=== PATIENT | female | born 1970 | race African-American/Black ===

== ENCOUNTER 2017-12-14 07:37 | Outpatient (CLI) | payer OTHER ==
[2017-12-14] MEDS ORDERED: Gadobenate Dimeglumine 529 MG/1 ML (20ML VIAL) ONE (09:00)
--- NOTE | 2017-12-14 09:29 | RAD ---
CERVICAL SPINE FOUR VIEWS: History: Cervical pain. Technique: Views were obtained in the neutral, flexion, and extension position as well as an AP view. FINDINGS: The cervical vertebrae maintain height and alignment. Mild to moderate degenerative changes are noted at C4-5 and C5-6. Mild loss of disc space at C5-6. Anterior osteophytes are prominent at C4, C5, and C6 levels. Mild posterior spondolytic changes at the C5-6 level noted. No significant listhesis or s ubluxation seen with flexion or extension. IMPRESSION: There are mild to moderate degenerative changes in the mid cervical spine as described. POS: OFF
--- NOTE | 2017-12-14 09:35 | RAD ---
LUMBAR SPINE FOUR VIEWS: History: 47-year-old female with history of lumbar radiculopathy and low back pain. Comparison: 07-22-14 FINDINGS/IMPRESSION: Evidence for laminectomy at L5. No malalignment. No abnormal translation between flexion and extensio n. Lower lumbar spine facet arthrosis. POS: OFF
--- NOTE | 2017-12-14 10:56 | MRI ---
MRI CERVICAL SPINE WITHOUT CONTRAST: HISTORY: Cervical pain. Pain radiates down the left shoulder and arm. COMPARISON: 03/22/2016 TECHNIQUE: MRI cervical spine is performed without intravenous Gadolinium administration. Multisequential, mult iplanar imaging is performed. FINDINGS: Appropriate T1 marrow signal intensity of the cervical vertebrae. Cervical spine vertebral body heig ht is maintained. No fracture. No significant STIR hyperintensity to suggest edema or ligamentous i njury. The visualized brain parenchyma, cervicomedullary junction, cervical cord, and upper thoracic aorta h ave normal size and signal intensity. C2-C3: No significant disk osteophyte complex. No significant central canal stenosis. Foramina are patent. C3-C4: No significant disk osteophyte complex. No significant central canal stenosis. The right ne ural foramen is patent. Mild left foraminal narrowing. C4-C5: A broad-based disk osteophyte complex abuts the thecal sac and effaces the ventral subarachno id space. Minimal deformity of the cervical cord, without T2 hyperintensity in the cord. Mild centr al canal stenosis. Degenerative change in the bilateral vertebral joints results in mild right and mo derate left foraminal narrowing. C5-C6: Broad-based disk osteophyte complex abuts the thecal sac. The ventral subarachnoid space is maintained. Minimal findings in the cervical cord, without T2 hyperintensity in the cord. Mild cent ral canal stenosis. Degenerative change in the bilateral uncovertebral joints results in mild bilate ral foraminal narrowing. C6-C7: No significant disk osteophyte complex. No significant central canal stenosis. The foramina are patent. C7-T1: No significant disk osteophyte complex. No significant central canal stenosis. The neural f oramina are patent. IMPRESSION: Degenerative changes of the cervical spine, as detailed above. No high grade central canal stenosis. There is moderate left foraminal narrowing at the C4-C5 level. POS: [facility]
--- NOTE | 2017-12-14 11:36 | MRI ---
MRI LUMBAR SPINE WITH AND WITHOUT CONTRAST: HISTORY: Lumbar radiculopathy. Previous back surgery. Pain radiating down the right leg and hip. COMPARISON: 06/29/2016 TECHNIQUE: MRI lumbar spine is performed without intravenous Gadolinium administration. Multisequential, multip lanar imaging is performed. FINDINGS: Appropriate T1 marrow signal intensity of the lumbar vertebrae. Lumbar spine vertebral body height i s maintained. No fracture. No STIR hyperintensity to suggest edema or ligamentous injury. No patho logic enhancement of the vertebral bodies. Symmetric signal intensity of the psoas muscles. T2 hyperintensity in the posterior segment of the r ight hepatic lobe, similar to the previous examination. Hepatic cyst is favored. The conus medullar is terminates at the mid L2 level. T12-L1: Adequate disk hydration. No significant central canal stenosis or foraminal narrowing. L1-L2: Adequate disk hydration. No significant central canal stenosis or foraminal narrowing. L2-L3: Adequate disk hydration. No significant central canal stenosis or foraminal narrowing. L3-L4: Adequate disk hydration. Mild ligamentum flavum thickening and facet hypertrophy. No signif icant central canal stenosis. The neural foramina are patent. L4-L5: Posterior decompressive laminectomy defect. Enhancing scar tissue at the operative site. Ge neralized disk bulge and posterior element hypertrophy result in mild central canal stenosis. Minima l bilateral foraminal narrowing. L5-S1: Mild loss of disk space height. There is a generalized disk bulge. There is no significant stenosis of the thecal sac; however, there is narrowing of both subarticular zones with obscuration o f bilateral traversing S1 nerve roots, left greater than right. The degree of subarticular stenosis has not significantly changed. A posterior decompressive laminectomy defect is identified. Minimal scar tissue at the operative site. The previously noted annular fissure is no longer evident. IMPRESSION: 1. Redemonstration of postoperative changes. No high grade central canal stenosis; however, there i s persistent narrowing of both subarticular zones at L5-S1 with obscuration of bilateral traversing S 1 nerve roots. 2. Interval resolution of abnormal signal intensity on the posterior L5-S1 disk. POS: [facility]
== END 2017-12-14 07:38 | disposition home or self-care (01) ==
LOC: MRI 07:37 → SCSMRI 07:38
PROVIDERS: ATTEND Physician Assistant Surgical
DX: M54.2 Cervicalgia (principal); M47.26 Other spondylosis with radiculopathy, lumbar region; M47.892 Other spondylosis, cervical region; M48.02 Spinal stenosis, cervical region; Z98.890 Other specified postprocedural states
CPT/HCPCS: 72050; 72120; 72141; 72158; A9579

== ENCOUNTER 2018-03-26 12:28 | Outpatient (CLI) | payer OTHER | END 2018-03-26 12:29 | disposition home or self-care (01) | LOC: BICMAMMO 12:28 | PROVIDERS: ATTEND Internal Medicine | DX: Z12.31 Encounter for screening mammogram for malignant neoplasm of breast (principal) | CPT/HCPCS: 77063; 77067 ==

== ENCOUNTER 2018-05-30 10:35 | Day surgery (SDC) | payer OTHER ==
[2018-05-30] MEDS ORDERED: PROPOFOL 200 MG/20 ML VIAL ONE (14:55)
--- NOTE | 2018-05-30 17:15 | OP ---
DATE OF PROCEDURE: 05/30/2018 PROCEDURE PERFORMED: Esophagogastroduodenoscopy with biopsy. SURGEON: Que Harris MD. ANESTHESIA: Premedications given per Anesthesiology Department. PREPROCEDURE DIAGNOSES: 1. Gastroesophageal reflux. 2. Dyspepsia. POSTPROCEDURE DIAGNOSES: 1. Mild mid body gastritis, nonerosive. 2. Otherwise normal upper endoscopy. PROCEDURE IN DETAIL: A written consent was obtained prior to procedure. After adequate sedation, th e forward-viewing endoscope was advanced down the stomach under direct vision to second portion of th e duodenum. Both the second portion and the bulb appeared normal. Pylorus is patent. The gastric a ntrum appeared normal. In the mid body, mucosal hyperemia and petechia were noted. Biopsies were ob tained. Fundus and cardia appeared normal. Retroflexion did not show any abnormality. GE junction located at 38 cm with normal Z-line. The distal, mid, and upper esophagus appeared normal. Patient tolerated the procedure well. ASSESSMENT: 1. Mid body nonerosive gastritis. 2. Otherwise normal upper endoscopy. RECOMMENDATIONS: 1. Await biopsy result. 2. Continue with pantoprazole.
--- NOTE | 2018-05-30 17:29 | OP ---
DATE OF PROCEDURE: 05/30/2018 PROCEDURE: Colonoscopy. SURGEON: Que Harris M.D. ANESTHESIA: Premedication given per Anesthesiology Department. PREPROCEDURE DIAGNOSIS: Colon screening. POSTPROCEDURE DIAGNOSIS: Normal colon exam. PROCEDURE IN DETAIL: A written consent was obtained prior to procedure. After adequate sedation, re ctal exam performed was normal. The endoscope was advanced to the cecum. The quality of the bowel p rep was good. The cecum, ascending colon, hepatic flexure, transverse colon, splenic flexure, descen ding colon and rectosigmoid colon all appeared normal. Retroflexion did not show any abnormality exc ept for small internal hemorrhoids. The patient tolerated the procedure well. ASSESSMENT: 1. Small internal hemorrhoids. 2. Otherwise normal colon exam. RECOMMENDATION: Repeat colon screening in 10 years.
== END 2018-05-30 13:38 | disposition home or self-care (01) ==
LOC: SDC 10:35
PROVIDERS: ATTEND Internal Medicine Gastroenterology
PROC: 0DB68ZX Excision of Stomach, Via Natural or Artificial Opening Endoscopic, Diagnostic (ICD-10-PCS; principal; 2018-05-30)
PROC: 0DJD8ZZ Inspection of Lower Intestinal Tract, Via Natural or Artificial Opening Endoscopic (ICD-10-PCS; principal; 2018-05-30)
DX: Z12.11 Encounter for screening for malignant neoplasm of colon (principal); K29.50 Unspecified chronic gastritis without bleeding; B96.81 Helicobacter pylori [H. pylori] as the cause of diseases classified elsewhere; K21.9 Gastro-esophageal reflux disease without esophagitis; K64.8 Other hemorrhoids
CPT/HCPCS: 88305; 88312; J2704

== ENCOUNTER 2019-04-04 07:37 | Outpatient (CLI) | payer OTHER ==
--- NOTE | 2019-04-04 08:17 | MMO ---
Bilateral MAMMO Bilat Screen [facility]DI. CLINICAL HISTORY: Patient is 49 years old and is seen for screening. The patient has the following family history of breast cancer: second cousin, malignant (generic). The patient has no personal history of cancer. The patient has a history of Breast reduction more than 10 years ago. VIEWS: The views performed were: bilateral craniocaudal and bilateral mediolateral oblique. FILMS COMPARED: The present examination has been compared to prior imaging studies performed at [facility] on 05/15/2014, 07/28/2015, 08/31/2016 and 03/26/2018. This study has been interpreted with the assistance of computer-aided detection. MAMMOGRAM FINDINGS: The breasts are heterogeneously dense, which could obscure a lesion on mammography. There are no suspicious masses, suspicious calcifications, or new areas of architectural distortion. IMPRESSION: THERE IS NO MAMMOGRAPHIC EVIDENCE OF MALIGNANCY. A ROUTINE FOLLOW-UP MAMMOGRAM IN 1 YEAR IS RECOMMENDED. ACR BI-RADS Category 1 - Negative MAMMOGRAPHY NOTE: 1. A negative mammogram report should not delay a biopsy if a dominant of clinically suspicious mass is present. 2. Approximately 10% to 15% of breast cancers are not detected by mammography. 3. Adenosis and dense breasts may obscure an underlying neoplasm. Reported by: PAUL BELLA MD Electonically Signed: [id number]
== END 2019-04-04 07:38 | disposition home or self-care (01) ==
LOC: SCSMAMMO 07:37
PROVIDERS: ATTEND Internal Medicine
DX: Z12.31 Encounter for screening mammogram for malignant neoplasm of breast (principal)
CPT/HCPCS: 77067

== ENCOUNTER 2020-09-29 09:49 | Outpatient (CLI) | payer OTHER ==
--- NOTE | 2020-09-29 11:34 | RAD ---
LUMBAR SPINE SERIES WITH FLEXION AND EXTENSION 4 VIEWS: Date: 09/29/2020 HISTORY: Previous surgery. Pain mostly in right leg. FINDINGS: Vertebral bodies maintain normal height. Minimal disc narrowing is seen at L5-S1. Post laminectomy ch anges are seen at this level. There is limited motion on the flexion or extension views. No abnormal motion identified. IMPRESSION: Stable postop change. POS: [facility]
--- NOTE | 2020-09-29 11:35 | MRI ---
MRI LUMBAR SPINE WITH AND WITHOUT CONTRAST: DATE: 09/29/2020 HISTORY: 50-year-old female with low back pain and bilateral lumbar radiculopathy, right worse than left. ICD-10: "M 54.30, sciatica" "M 79.606, leg pain" COMPARISON: 12/14/2017 TECHNIQUE: Multiple sequences obtained in axial and sagittal planes, pre and post IV injection of gadolinium-bas ed contrast agent. FINDINGS: There are 5 lumbar-type vertebrae. Vertebral body heights are maintained. No significant disc space narrowing at any level. Alignment is normal. No scoliosis. Conus medullaris terminates at upper L3. Normal bone marrow signal. T12-L1:Normal L1-2:Normal L2-3:Normal L3-4:Mild bilateral facet DJD and mild to moderate ligamentum flavum thickening. No high-grade centra l spinal canal stenosis and no high-grade neural foraminal stenosis. L4-5:Midline laminectomy defect. Moderate degenerative bony hypertrophy of bilateral facet complexes causing lateral recess stenosis bilaterally. The right side is worse than left, and has worsened since the prior MRI. Interval worsening of now moderate right neural foraminal stenosis, due to right facet hypertrophy and foraminal component of disc bulge. Slightly lesser degree of moderate left neural foraminal stenosis, unchanged. Transverse diameter spinal canal and thecal sac are narrowed, w ith overall moderate degree of central spinal canal stenosis. L5-S1:Severe bilateral facet DJD with bony hypertrophy. This, together with small-moderate central di sc herniation superimposed on disc bulge, results in high-grade lateral recess stenosis bilaterally. Additional postsurgical scar tissue surrounding the bilateral S1 nerve roots at the late ral recesses, in addition to the crowding caused by the disc herniation and facet hypertrophy. Midline laminectomy defect. Mild thecal sac stenosis. Moderate right and moderate to severe left neur al foraminal stenosis, unchanged. IMPRESSION: 1) status post midline laminectomies at L4-5 and L5-S1. 2) high-grade stenoses of the bilateral subarticular zones at L4-5 and L5-S1. See above comments. 3) the right L4-5 subarticular zone stenosis has apparently worsened since 12/14/2017. 4) no other interval change. 5) all levels superior to L4 are essentially normal.
== END 2020-09-29 09:50 | disposition home or self-care (01) ==
LOC: TBSIIMAG 09:49
PROVIDERS: ATTEND Surgery
DX: M54.30 Sciatica, unspecified side (principal); M79.606 Pain in leg, unspecified; M48.061 Spinal stenosis, lumbar region without neurogenic claudication; Z98.890 Other specified postprocedural states
CPT/HCPCS: 72120; 72158

== ENCOUNTER 2021-10-20 10:00 | Outpatient (CLI) | payer BC | END 2021-10-20 10:01 | disposition home or self-care (01) | LOC: BICULT 10:00 | PROVIDERS: ATTEND Internal Medicine Gastroenterology | DX: R10.13 Epigastric pain (principal); K21.9 Gastro-esophageal reflux disease without esophagitis; K80.20 Calculus of gallbladder without cholecystitis without obstruction | CPT/HCPCS: 76700 ==

== ENCOUNTER 2024-06-20 16:02 | Outpatient (CLI) | payer BC | END 2024-06-20 16:03 | disposition home or self-care (01) | LOC: CT 16:02 | PROVIDERS: ATTEND Psychiatry & Neurology Neurology | DX: R51.9 Headache, unspecified (principal) | CPT/HCPCS: 70450 ==

== ENCOUNTER 2024-09-08 09:53 | Outpatient (CLI) | payer BC ==
[2024-09-08] MEDS ORDERED: Regadenoson 0.4 MG/5 ML SYRINGE ONE (11:06)
== END 2024-09-08 09:54 | disposition home or self-care (01) ==
LOC: NM 09:53
PROVIDERS: ATTEND Internal Medicine Cardiovascular Disease
DX: Z01.818 Encounter for other preprocedural examination (principal); R07.9 Chest pain, unspecified
CPT/HCPCS: 78452; 93017; A9502; J2785

== ENCOUNTER 2024-09-09 07:43 | Day surgery (SDC) | payer BC ==
[2024-09-04 15:40] VITALS: BMI 23.0
[2024-09-09] MEDS ORDERED: fentaNYL PF 100 MCG/2 ML SYRINGE ONE (07:47)
[2024-09-09] MEDS ORDERED: Lidocaine 1% PF 5 ML VIAL ONE (07:47)
[2024-09-09] MEDS ORDERED: Ondansetron PF 4 MG/2 ML Vial ONE (07:47)
[2024-09-09] MEDS ORDERED: Rocuronium Bromide 10 MG/ML (10ML VIAL) ONE (07:47)
[2024-09-09] MEDS ORDERED: Midazolam HCl 2 mg/2 ml Vial ONE (07:47)
[2024-09-09] MEDS ORDERED: PROPOFOL 20 ML ONE (07:47)
[2024-09-09] MEDS ORDERED: SUGAMMADEX SODIUM 200 MG/2 ML VIAL ONE (07:47)
[2024-09-09] MEDS ORDERED: Dexamethasone 20 MG/5 ML VIAL ONE ×2 (08:23→09:43)
[2024-09-09] MEDS ORDERED: Lidocaine 1% MPF 2 ML VIAL ONE (08:39)
[2024-09-09] MEDS ORDERED: Clindamycin/D5W 900 mg/50 ml Premix Bag ONE (08:39)
[2024-09-09] MEDS ORDERED: CEFAZOLIN 2 GM VIAL ONE (09:00)
[2024-09-09] MEDS ORDERED: LevoFLOXacin 500 mg/D5W 500 MG in Premix 1 BAG IVPB SCH (09:00)
[2024-09-09] MEDS ORDERED: PHENYLEPHRINE-NS 100 MCG/ML 10 ML SYRINGE ONE (09:53)
[2024-09-09] MEDS ORDERED: EPINEPHrine 1 MG/ML VIAL ONE (10:41)
[2024-09-09] MEDS ORDERED: Bupivacaine PF 0.5% 30 ML VIAL ONE (10:41)
[2024-09-09] MEDS ORDERED: fentaNYL 50 mcg/mL 1 mL Vial ONE (11:00)
== END 2024-09-09 13:05 | disposition home or self-care (01) ==
LOC: EEVIPCON 07:43 → SDC 07:43
PROVIDERS: ATTEND Neurological Surgery
PROC: 01NB0ZZ Release Lumbar Nerve, Open Approach (ICD-10-PCS; principal; 2024-09-09)
DX: M54.16 Radiculopathy, lumbar region (principal); I10 Essential (primary) hypertension; E78.5 Hyperlipidemia, unspecified; E03.9 Hypothyroidism, unspecified; F41.9 Anxiety disorder, unspecified; J45.909 Unspecified asthma, uncomplicated; K21.9 Gastro-esophageal reflux disease without esophagitis; Z90.710 Acquired absence of both cervix and uterus; Z90.49 Acquired absence of other specified parts of digestive tract; Z91.048 Other nonmedicinal substance allergy status; Z88.1 Allergy status to other antibiotic agents; Z79.890 Hormone replacement therapy; Z79.84 Long term (current) use of oral hypoglycemic drugs; Z79.899 Other long term (current) drug therapy
CPT/HCPCS: J0171; J0665; J1100; J1956; J2250; J2405; J2704; J3010; J3490

== ENCOUNTER 2025-07-07 10:10 | Outpatient (CLI) | payer BC | END 2025-07-07 10:11 | disposition home or self-care (01) | LOC: SCSMRI 10:10 | PROVIDERS: ATTEND Neurological Surgery | DX: M54.16 Radiculopathy, lumbar region (principal); M48.061 Spinal stenosis, lumbar region without neurogenic claudication; M48.07 Spinal stenosis, lumbosacral region | CPT/HCPCS: 72158 ==